=== PATIENT | male | born 1960 | race Caucasian/White ===

== ENCOUNTER 2019-02-21 07:35 | Day surgery (SDC) | payer OTHER ==
[2019-02-21] VITALS (10 sets, daily range): BP systolic 100–138; BP diastolic 50–73; PULSE 58–82; RESP 11–22; Ht 177.8 cm; Wt 92.7 kg
[~2019-02-21] VITALS: Ht 177.8 cm; Wt 92.7 kg
--- NOTE | 2019-02-21 07:13 | HP ---
DATE OF ADMISSION: 02/21/2019 HISTORY: A 54-year-old male patient with a long history of left ear pain and bleeding seen in the of [facility] 01/2019 with a superficially ulcerated left ear lesion. This has not healed under conservative management. The patient now admitted to the hospital for surgical excision of probable ear tumor and repair with full thickness skin graft. ALLERGIES: None. PRIOR SURGICAL HISTORY: See medical clearance. MEDICATIONS: See medical clearance. PRIOR SURGERY: None. CLOTTING DISORDERS: None. HABITS: Alcohol: None. Tobacco 1 pack a day. Recreational drugs: None. FAMILY HISTORY: Negative. REVIEW OF SYSTEMS: Negative. A complete ear, nose and throat and head and neck exam is as follows: EARS AND TYMPANIC MEMBRANES: There is a 2 cm superficially ulcerated lesion involving the left ear c oncha. NOSE: Clear. OROPHARYNX: Clear. NECK: No masses or adenopathy. The remainder of the physical will be dictated by the medical clearance doctor. 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 RECOMMENDATIONS: Surgical excision. Dictated By: DIMAS BAILEY/ASH Conf#: [id number] DID#: [id number]
[~2019-02-21 07:35] MED LIST: ATOR-2 PO; COU5 PO; DIGO125T PO; DILT300C60 PO; DIV250 PO; FOLI-49 PO; METO-429 PO; RANI150T5 PO
[2019-02-21] MEDS ORDERED: WARF5TAB PO (08:29)
[2019-02-21] MEDS ORDERED: RANI150T5 PO (08:30)
[2019-02-21] MEDS ORDERED: DIVA-16 PO (08:30)
[2019-02-21] MEDS ORDERED: FOLI-49 PO (08:31)
[2019-02-21] MEDS ORDERED: DIGO125T PO (08:32)
[2019-02-21] MEDS ORDERED: DILT300T PO (08:32)
[2019-02-21] MEDS ORDERED: METO-429 PO (08:33)
[2019-02-21] MEDS ORDERED: ATOR-2 PO (08:33)
[2019-02-21] MEDS ORDERED: LACTATED RINGER'S 1,000 ML IV SCH (09:00)
[2019-02-21] MEDS ORDERED: LIDOCAINE 1%/EPI 30 ML INJ ZFS ONE (10:00)
--- NOTE | 2019-02-21 10:16 | PREAC ---
Date/Time of Note Date/Time of Note DATE: 02/21/19 TIME: 10:12 Anesthesia Eval and Record Evaluation Time Pre-Procedure Interview DATE: 02/21/19 TIME: 10:12 Age 58 Sex male NPO: 8 hrs Preoperative diagnosis left ear tumor Planned procedure excision of left ear tumor with full thickness Past Medical History Past Medical History: Includes Cardio: HTN, Dyslipidemia, Arrythmia, PPM/AICD, CHF, Other (EF 50-55%) Endo: Diabetes Neuro: CVA, Other (global aphasia, memory impairment) Surgery & Anesthesia Issues No known issue Meds Anticoagulation: Yes (yesterday ) Beta Rachel within 24 hr: Yes Reason Beta Rachel not given: Pt. not on B-Rachel Reported Medications Atorvastatin* (Atorvastatin*) 80 Mg Tablet, 80 MG PO QHS, #30 TAB 02/21/19 Metoprolol Tartrate* (Lopressor*) 50 Mg Tab, 50 MG PO DAILY, #60 TAB 02/21/19 Diltiazem Hcl* (Cardizem LA*) 300 Mg Tab.sr.24h, 300 MG PO DAILY, #30 TAB.SA 02/21/19 Digoxin* (Digitek*) 125 Mcg Tablet, 0.125 MG PO DAILY, TAB 02/21/19 Folic Acid* (Folic Acid*) 1 Mg Tablet, 1 MG PO DAILY, TAB 02/21/19 Ranitidine Hcl* (Ranitidine Hcl*) 150 Mg Tablet, 150 MG PO Q12, #60 TAB 02/21/19 Divalproex Sodium* (Divalproex Sodium*) 500 Mg Tablet.dr, 500 MG PO BID, #120 TAB 02/21/19 Warfarin Sodium* (Coumadin*) 5 Mg Tablet, 5 MG PO DAILY, TAB 02/21/19 Discontinued Reported Medications Atorvastatin* (Atorvastatin*) 80 Mg Tablet, 80 MG PO HS, TAB 01/22/15 Warfarin Sod (Coumadin) 5 Mg Tablet, 5 MG PO DAILY, TAB 01/22/15 Digoxin* (Digoxin*) 0.125 Mg Tab, 0.125 MG PO DAILY, TAB 01/22/15 Metoprolol Tartrate* (Lopressor*) 50 Mg Tab, 50 MG PO BID, TAB 01/22/15 Diltiazem Hcl* (Diltiazem XT) 300 Mg Capsule.er, 300 MG PO DAILY, CAP 01/22/15 Ranitidine Hcl* (Ranitidine Hcl*) 150 Mg Tablet, 150 MG PO BID, TAB 01/22/15 Divalproex Sodium* (Divalproex Sodium*) 250 Mg Tablet.dr, 250 MG PO BID, TAB 01/22/15 Folic Acid* (Folic Acid*) 1 Mg Tablet, 1 MG PO DAILY, TAB 01/22/15 Current Medications Lactated Ringer's 1,000 ml @ 25 mls/hr Q24H IV Last administered on 02/21/19at 09:10; Admin Dose 25 MLS/HR; Start 02/21/19 at 09:00 Meds reviewed: Yes Allergies Coded Allergies: No Known Allergy (Unverified , 02/21/19) Allergies Reviewed: Yes Labs/Studies Labs Reviewed: Reviewed by anesthesiologist test: N/A Studies: ECG (a fib), CXR (nl) Pre-procedure Exam Last vitals Vital Signs Date Temp Pulse Resp B/P (MAP) Pulse Ox O2 O2 Flow FiO2 Time Delivery Rate 02/21/19 97.5 82 16 138/70 98 Room Air 09:03 (92) Airway: Adequate mouth opening Mallampati: Mallampati I Teeth: Normal Lung: Normal Heart: Normal ASA Physical Status ASA physical status: 3 Emergency: None Planned Anesthetic General/MAC: LMA Planned Pain Management Parenteral pain med Pre-operative Attestations Prior to commencing anesthesia and surgery, the patient was re-evaluated, there was verification of: *The patient's identity *The results of appropriate recent lab work and preoperative vital signs *The above evaluation not changing prior to induction *Anesthetic plan, risk benefits, alternative and complications discussed with patient/family; questions answered; patient/family understands, accepts and wishes to proceed. DIOGO BRUCE MD Feb 21, 2019 10:16
[2019-02-21] MEDS ORDERED: MIDAZOLAM 1 MG/ML 2 ML INJ ONE (10:18)
[2019-02-21] MEDS ORDERED: METOCLOPRAMIDE 10 MG INJ ONE (10:21)
[2019-02-21] MEDS ORDERED: ONDANSETRON 4 MG INJ ONE (10:21)
[2019-02-21] MEDS ORDERED: PROPOFOL 100 ML ONE (10:21)
[2019-02-21] MEDS ORDERED: FENTAnyl 50 MCG/ML VIAL ONE (10:21)
[2019-02-21] MEDS ORDERED: LABETALOL HCL 20MG INJ IV PRN (10:30)
[2019-02-21] MEDS ORDERED: DIPHENHYDRAMINE 50 MG INJ IV PRN (10:30)
[2019-02-21] MEDS ORDERED: hydrALAzine 20 MG INJ IV PRN (10:30)
[2019-02-21] MEDS ORDERED: MEPERIDINE 25 MG INJ IV PRN (10:30)
[2019-02-21] MEDS ORDERED: FENTAnyl 50 MCG/ML VIAL IV PRN ×3 (10:30)
[2019-02-21] MEDS ORDERED: HYDROmorphONE 1 MG/5 ML IV SYRINGE IV PRN ×3 (10:30)
[2019-02-21] MEDS ORDERED: ONDANSETRON 4 MG INJ IV PRN (10:30)
--- NOTE | 2019-02-21 11:37 | SIPON ---
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
[2019-02-21] MEDS ORDERED: BACITRACIN/POLYMYXIN 0.9 GM OINT TOP ONE (11:39)
[2019-02-21] MEDS ORDERED: LIDOCAINE 1%/EPI (1:100,000) (MDV) 20 ML INJ ONE (11:41)
[2019-02-21] MEDS ORDERED: BACITRACIN/POLYMYXIN 28.35 GM OINT TOP ONE (12:13)
--- NOTE | 2019-02-21 14:54 | PAC ---
Date/Time of Note Date/Time of Note DATE: 02/21/19 TIME: 14:54 Post-Anesthesia Notes Post-Anesthesia Note Last documented vital signs Vital Signs Date Temp Pulse Resp B/P (MAP) Pulse Ox O2 O2 Flow FiO2 Time Delivery Rate 02/21/19 98.0 58 20 102/71 96 Room Air 12:09 (81) 02/21/19 98.0 11:38 Activity: WNL Respiratory function: WNL Cardiovascular function: WNL Mental status: Baseline Pain reasonably controlled: Yes Hydration appropriate: Yes Nausea/Vomiting absent: No DIOGO BRUCE MD Feb 21, 2019 14:54
--- NOTE | 2019-02-21 23:22 | OPR ---
DATE OF OPERATION: 02/21/2019 PREOPERATIVE DIAGNOSIS: Left ear carcinoma. POSTOPERATIVE DIAGNOSIS: Left ear carcinoma. PROCEDURE PERFORMED: Excision of left ear carcinoma with full thickness skin graft reconstruction. DESCRIPTION OF PROCEDURE: The patient was brought to the operating room under parenteral sedation, g eneral oral endotracheal anesthesia with the patient in the supine position, sterile sheets and drape s applied. The left ear was examined. There was a 3 x 3 cm superficially ulcerative lesion involvin g the left irene. The area about the irene and the postauricular skin were then localized with Xyl ocaine 1% epinephrine 1:100,000 for analgesia and hemostasis. Marking pen was utilized to outline th e surgical excision which was then carried out with a 15 blade. The incision was taken through the p erichondrium down to the cartilage and then using blunt and sharp dissection. The tumor was removed and sent for pathologic evaluation. Bleeding points were electrocoagulated for hemostasis. The exci renetta site measured approximately 3 x 3 cm. Accordingly, the postauricular area which had been prior localized was marked with methylene blue for excision of a full thickness skin graft. This measured approximately by 4 cm in length, 3 cm in width. The skin incision was carried out with a 15 blade. This was undermined elevated, set aside in saline for later use as a graft. Bleeding points were bartolome ctrocoagulated for hemostasis. The incision was closed with interrupted 4-0 silk. The full thicknes s graft was brought into the operative field and trimmed of underlying fat and subcutaneous tissue. This was then brought into the operative field so as to cover approximately 80% of the excision site. The graft was then sewn into position with multiple 5-0 silk sutures. The surgical site was then c leaned, dressed with antibiotic ointment, Telfa, and a light cotton pressure dressing. The patient w as awakened and extubated in the operating room and returned to recovery in excellent condition. ESTIMATED BLOOD LOSS: Approximately 5 to 10 mL. COMPLICATIONS: No complications. Dictated By: DIMAS BAILEY/ASH Conf#: [id number] DID#: [id number]
== END 2019-02-21 12:45 | disposition home or self-care (01) ==
LOC: SDS 07:35
PROVIDERS: ATTEND Otolaryngology Otolaryngology/Facial Plastic Surgery
DX: C44.219 Basal cell carcinoma of skin of left ear and external auricular canal (principal); I10 Essential (primary) hypertension; E11.9 Type 2 diabetes mellitus without complications; E78.5 Hyperlipidemia, unspecified; I11.0 Hypertensive heart disease with heart failure; I50.9 Heart failure, unspecified; Z95.810 Presence of automatic (implantable) cardiac defibrillator; I69.320 Aphasia following cerebral infarction; Z79.01 Long term (current) use of anticoagulants
CPT/HCPCS: 11646; 15260; 88304; J2250; J2765; J3010; Z7512; Z7610; J2405